=== PATIENT | male | born 1960 | race Caucasian/White ===

== ENCOUNTER 2024-09-22 20:49 | Emergency (ER) | payer OTHER ==
[2024-09-22] MEDS ORDERED: IBUPROFEN 400 MG TAB ONE (21:31)
--- NOTE | 2024-09-22 21:53 | RAD REPORT ---
EXAMINATION: XR RIGHT KNEE CLINICAL INDICATION: Male, 64 years old. Pain;Swelling TECHNIQUE: Multiple views of the right knee were obtained. COMPARISON: No prior exam. FINDINGS: Prominent soft tissue swelling is seen anterior to the patella and patellar tendon. Signifi cant soft tissue swelling is seen in the suprapatellar region. Moderate to large amount of suprapatellar joint fluid is suspected. No fracture or dislocation. No underlying aggressive bone les ion. MRI imaging would be recommended for further evaluation.
--- NOTE | 2024-09-22 22:19 | ER ---
Nurse's Notes [facility] Name: Oren Chen Age: 64 yrs Sex: Male : 1960 Arrival Date: 09/22/2024 Time: 20:49 Bed 19 Private MD: Diagnosis: Effusion, right knee Presentation: 09/22 21:12 Chief complaint: Patient states: S/P NEAR FALL....C/O RIGHT KNEE/THIGH br2 WEAKNESS...CRAMPS BUT DENIES PAIN, UNABLE TO MOVE PT STATES HE IS UNABLE TO MOVE RLE. Coronavirus screen: Client denies travel out of the [place] in the last 14 days. Ebola Screen: Patient denies exposure to infectious person. Initial Sepsis Screen: Does the patient meet any 2 criteria? No. Patient's initial sepsis screen is negative. Does the patient have a suspected source of infection? No. Patient's initial sepsis screen is negative. Risk Assessment: Do you want to hurt yourself or someone else? Patient reports no desire to harm self or others. Onset of symptoms was September 22, 2024 at 19:00. 21:12 Method Of Arrival: Wheelchair br2 21:12 Acuity: KAMLA 3 br2 Triage Assessment: 21:15 General: Appears in no apparent distress. comfortable, Behavior is calm, cooperative. br2 Pain: Denies pain. Musculoskeletal: Reports weakness in right leg. Injury Description: NEAR FALL....BELIEVES HE HYPEREXTENDED RLE. Historical: - Allergies: 21:15 No Known Allergies; br2 - PMHx: 21:15 Hypertensive disorder; br2 - PSHx: 21:15 CATARACTS RT; br2 - Immunization history:: Adult Immunizations up to date. - Infectious Disease History:: Denies. - Social history:: Smoking status: Patient denies any tobacco usage or history of. Patient/guardian denies using alcohol, street drugs. Screenin:17 [facility] ED Fall Risk Assessment (Adult) History of falling in the last 3 months, vc1 including since admission No falls in past 3 months (0 pts) Confusion or Disorientation No (0 pts) Intoxicated or Sedated No (0 pts) Impaired Gait Yes (1 pt) Mobility Assist Device Used Yes (1 pt) Altered Elimination No (0 pt) Score/Fall Risk Level 0 - 2 = Low Risk Oriented to surroundings, Maintained a safe environment, Educated pt \T\ family on fall prevention, incl call for assistance when getting out of bed, Hourly rounding (assess needs \T\ fall precautionary measures) done. Abuse screen: Denies threats or abuse. Nutritional screening: No deficits noted. Tuberculosis screening: No symptoms or risk factors identified. Assessment: 21:43 General: Appears in no apparent distress. uncomfortable, well groomed, well developed, vc1 well nourished, Behavior is calm, cooperative, appropriate for age. Pain: Complains of pain in right leg Pain does not radiate. Pain currently is 0 out of 10 on a pain scale. Also complains of unable to move leg. Neuro: Level of Consciousness is awake, alert, obeys commands, Oriented to person, place, time, situation, Appropriate for age. Cardiovascular: Heart tones S1 S2 present Capillary refill < 3 seconds Patient's skin is warm and dry. Respiratory: Airway is patent Respiratory effort is even, unlabored, Respiratory pattern is regular, symmetrical, Breath sounds are clear bilaterally. GI: No deficits noted. No signs and/or symptoms were reported involving the gastrointestinal system. : No deficits noted. No signs and/or symptoms were reported regarding the genitourinary system. EENT: No deficits noted. No signs and/or symptoms were reported regarding the EENT system. Derm: Skin is intact, is healthy with good turgor, Skin is dry, Skin is normal. Musculoskeletal: Circulation, motion, and sensation intact. Range of motion: limited in right knee Swelling present in right quadriceps and right knee. 22:12 Reassessment: Patient appears in no apparent distress at this time. No changes from vc1 previously documented assessment. Patient and/or family updated on plan of care and expected duration. Pain level reassessed. Patient is alert, oriented x 3, equal unlabored respirations, skin warm/dry/pink. Vital Signs: 21:12 BP 179 / 100; Pulse 59; Resp 18; Temp 97.5(TE); Pulse Ox 98% on R/A; Weight 97.52 kg; br2 Height 5 ft. 7 in. ; Pain 0/10; 22:12 BP 156 / 98; Pulse 56; Resp 18; Pulse Ox 98% ; vc1 21:12 Body Mass Index 33.67 (97.52 kg, 170.18 cm) br2 21:12 Pain Scale: Adult br2 ED Course: 20:51 Patient arrived in ED. rg4 20:52 Ashok Bangura PA is PHCP. cp 20:52 Ashok Victoria MD is Attending Physician. cp 21:15 Triage completed. br2 21:15 Arm band placed on right wrist. br2 21:17 Tracy Maxwell, RN is Primary Nurse. vc1 21:17 Patient has correct armband on for positive identification. Bed in low position. Call vc1 light in reach. Provided Education on: call light. Pulse ox on. NIBP on. 21:25 Ice pack to injury. vc1 21:48 XRAY Knee RIGHT 3 view In Process Unspecified. EDMS 22:15 Eldon Vang MD is Referral Physician. cp 22:25 No provider procedures requiring assistance completed. Patient did not have IV access vc1 during this emergency room visit. 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 vc1 Outcome: 22:18 Discharge ordered by MD. cp 22:25 Discharged to home via wheelchair, with significant other, vc1 22:25 Condition: stable 22:25 Discharge instructions given to patient, significant other, Instructed on discharge instructions, follow up and referral plans. medication usage, Demonstrated understanding of instructions, follow-up care, medications, Prescriptions given X 1, 22:25 Patient left the ED. vc1 Signatures: Dispatcher [employer] EDNJ Ashok Bangura PA PA cp Garcia, Rubi rg4 Tracy Maxwell, RN RN vc1 Ashely Collins RN RN br2
--- NOTE | 2024-09-22 22:19 | EDPHYS ---
Physician Documentation [facility] Name: Oren Chen Age: 64 yrs Sex: Male : 1960 Arrival Date: 09/22/2024 Time: 20:49 Bed 19 Private MD: ED Physician Ashok Victoria HPI: 09/22 21:25 This 64 yrs old Male presents to ER via Wheelchair with complaints of Knee Injury. cp 21:25 The patient presents with an injury, swelling, tenderness. The complaints affect the cp right distal quadriceps and right patella. 21:25 Context: resulted from a mis-step, the patient is not able to bear weight, must have cp assistance, Problem is a result from a previous injury: No. Onset: The symptoms/episode began/occurred today. Associated signs and symptoms: The patient has no apparent associated signs or symptoms. Patient reports injury to right knee today while walking. Patient reports right knee hyperextended and now unable to light lower leg. Historical: - Allergies: 21:15 No Known Allergies; br2 - PMHx: 21:15 Hypertensive disorder; br2 - PSHx: 21:15 CATARACTS RT; br2 - Immunization history:: Adult Immunizations up to date. - Infectious Disease History:: Denies. - Social history:: Smoking status: Patient denies any tobacco usage or history of. Patient/guardian denies using alcohol, street drugs. ROS: 21:30 MS/extremity: Positive for injury or acute deformity, decreased range of motion, cp swelling, tenderness, of the right knee, Negative for paresthesias, 21:30 Neck: Negative for pain with movement, pain at rest, cp 21:30 Back: Negative for pain at rest, pain with movement, 21:30 Neuro: Negative for altered mental status, dizziness, headache, numbness, 21:30 All other systems are negative, Exam: 21:35 Constitutional: The patient appears in no acute distress, alert, awake, non-toxic, well cp developed, well nourished, uncomfortable, overweight 21:35 Head/Face: Normocephalic, atraumatic. cp 21:35 Neck: ROM/movement: is normal, is supple, without pain, no range of motions limitations, 21:35 Cardiovascular: Rate: bradycardic, 21:35 Respiratory: the patient does not display signs of respiratory distress, Respirations: normal, no retractions, labored breathing, is not present, 21:35 Abdomen/GI: Inspection: abdomen appears normal, Palpation: abdomen is soft and non-tender, in all quadrants, 21:35 Back: pain, is absent, ROM is normal, 21:35 Musculoskeletal/extremity: Extremities: noted in the right knee: decreased ROM, tenderness, swelling of right quadriceps muscle, patella tendon defect palpated, patient unable to extend right lower leg, Perfusion: the extremity is normally perfused throughout, the right leg Sensation intact. Vital Signs: 21:12 BP 179 / 100; Pulse 59; Resp 18; Temp 97.5(TE); Pulse Ox 98% on R/A; Weight 97.52 kg; br2 Height 5 ft. 7 in. ; Pain 0/10; 22:12 BP 156 / 98; Pulse 56; Resp 18; Pulse Ox 98% ; vc1 21:12 Body Mass Index 33.67 (97.52 kg, 170.18 cm) br2 21:12 Pain Scale: Adult br2 MDM: 21:09 Medical Screening Exam initiated cp 22:18 Data reviewed: vital signs, nurses notes, radiologic studies, plain films, and as a cp result, I will discharge patient. 22:18 Differential diagnosis: dislocation, closed fracture, tendon rupture. I considered the cp following discharge prescriptions or medication management in the emergency department Medications were administered in the Emergency Department. See MAR. Independent interpretation of the following test(s) in the Emergency Department X-Ray: My interpretation is images of right knee negative for fracture. Care significantly affected by the following chronic conditions: Hypertension. Counseling: I had a detailed discussion with the patient and/or guardian regarding the historical points, exam findings, and any diagnostic results supporting the discharge/admit diagnosis, radiology results, the need for outpatient follow up, for definitive care, a orthopedic surgeon, to return to the emergency department if symptoms worsen or persist or if there are any questions or concerns that arise at home. Response to treatment: the patient's symptoms have mildly improved after treatment, and as a result, I will discharge patient. 09/22 21:10 Order name: XRAY Knee RIGHT 3 view; Complete Time: 21:56 cp 09/22 21:56 Interpretation: Report reviewed. 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 cp Disposition Summary: 09/22/24 22:18 Discharge Ordered Notes: Location: Home cp Problem: new cp Symptoms: have improved cp Condition: Stable cp Diagnosis - Effusion, right knee cp Followup: cp - With: Eldon Vang MD - When: 2 - 3 days - Reason: Recheck today's complaints Discharge Instructions: - Discharge Summary Sheet cp - Knee Effusion cp - How to Use a Knee Immobilizer cp Forms: - Medication Reconciliation Form cp - Antibiotic Education cp - Prescription Opioid Use cp - Patient Portal Instructions cp - Leadership Thank You Letter cp Prescriptions: - Anaprox DS 550 mg Oral Tablet - take 1 tablet ORAL route every 12 hours As needed; 20 tablet; Refills: 0, cp Product Selection Permitted Addendum: 09/24/2024 02:07 Co-signature as Attending Physician, Ashok Victoria MD I agree with the assessment and c lew plan of care. Signatures: Dispatcher [employer] Ashok Mejia MD MD cha Page, Corey, PA PA cp Tracy Maxwell RN RN vc1 Ashely Collins RN RN br2 Corrections: (The following items were deleted from the chart) 09/22 21:10 21:10 Knee Right 3 View+[email or web address] ordered. [facility]
[2024-09-22 22:30] VITALS: TEMP 97.5; O2SAT 98
[2024-09-22 22:31] VITALS: BP 156/98
== END 2024-09-22 22:25 | disposition home or self-care (01) ==
LOC: ER 20:49
DX: M25.461 Effusion, right knee (principal)

== ENCOUNTER 2025-03-25 07:21 | Day surgery (SDC) | payer OTHER ==
[2025-03-25] MEDS ORDERED: LIDOCAINE 1% MPF 5 ML VIAL ONE (07:37)
[2025-03-25] MEDS ORDERED: KETOROLAC 30 MG/ML INJ ONE (07:37)
[2025-03-25] MEDS ORDERED: FENTANYL CITR 100 MCG/2 ML ONE (07:37)
[2025-03-25] MEDS ORDERED: MIDAZOLAM HCL 2 MG/2 ML INJ ONE (07:37)
[2025-03-25] MEDS: Ringers Lactate 1,000 ML IV ONE (07:45)
[2025-03-25] MEDS ORDERED: ROCURONIUM 50 MG/5 ML VIAL IV ONE (08:20)
[2025-03-25] MEDS: CEFAZOLIN SODIUM 2 GM/VIAL ONE (08:44)
[2025-03-25] MEDS: METHYLENE BLUE 1% 10 ML VIAL ONE (08:46)
[2025-03-25] MEDS ORDERED: NEOSTIGMINE 1 MG/ML -10 ML VIAL ONE (09:05)
[2025-03-25] MEDS ORDERED: GLYCOPYRROLATE 0.2 MG/ML SYR ONE (09:05)
--- NOTE | 2025-03-25 09:21 | P.OP ---
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 Gener al anesthesia began. Patient prepped and draped in usual sterile fashion in the prone position. Marcaine 0.5% infiltrated locally. Methylene blue used to injecting a small opening in the mass and the track proceeded to approximately 6 cm deep into the subcutaneous tissue but not headed towards the rectum. Subsequently a 4 x 2 cm incision was made around the opening. Dissection proceeded approximately 6 cm deep into the subcutaneous tissue to excise as much of the fistulous tract that was visible. Wound was irrigated and bleeding controlled cautery. 2-0 chromic used to approximate subcutaneous tissue in the deep space. 3-0 chromic used to reapproximate subcutaneous tissue and loosely bring the skin together. The skin itself was left open for drainage. Sterile dressing applied. Patient awakened and taken to recovery room in good general condition. CC:
[2025-03-25 10:23] VITALS: BP 125/84; TEMP 97.6; O2SAT 97
== END 2025-03-25 10:32 | disposition home or self-care (01) ==
LOC: OR 07:21
PROVIDERS: ATTEND Surgery
PROC: 0JB90ZZ Excision of Buttock Subcutaneous Tissue and Fascia, Open Approach (ICD-10-PCS; principal; 2025-03-25 08:30)
DX: K60.30 Anal fistula, unspecified (principal)
CPT/HCPCS: 88304; 11404; J2704; J2710; J2003; J2250; J3010; J7120; J1885